=== PATIENT | male | born 1980 | race Hispanic/Latino ===

== ENCOUNTER 2018-03-04 19:52 | Emergency (ER) | payer SELFPAY ==
[~2018-03-04] VITALS: Ht 177.8 cm; Wt 145.1 kg
[2018-03-04] MEDS ORDERED: KEFLEX500 MG PO (21:59)
[2018-03-04 22:15] VITALS: BP 120/82
== END 2018-03-04 22:19 | disposition home or self-care (01) ==
LOC: ER 19:52
DX: L03.221 Cellulitis of neck (principal); I10 Essential (primary) hypertension; E11.9 Type 2 diabetes mellitus without complications; E66.9 Obesity, unspecified
CPT/HCPCS: 99282

== ENCOUNTER 2018-06-10 11:41 | Emergency (ER) | payer SELFPAY ==
[~2018-06-10] VITALS: Ht 177.8 cm; Wt 136.1 kg
[~2018-06-10 11:41] MED LIST: KEFLEX500 MG PO
--- OUTSIDE RECORDS SUMMARY | 2018-06-10 11:44 | XMS REPORT | Continuity of Care Document ---
Author Author [facility] Interface Address Unknown Phone Unavailable Problems Problem Status Onset Date Classification Date Reported Comments Source ABSCESS, NECK, DIABETES Active 01/26/2018 [facility] ABSCESS Active 01/26/2018 [facility] Abdominal pain 10/22/2017 10/25/2017 [facility] Hyperglycemia due to type 2 diabetes mellitus 10/22/2017 10/25/2017 [facility] ABD PAIN Active 10/22/2017 [facility] Hypercholesteremia Resolved Problem 10/25/2017 [facility] Medications Medication Details Route Status Patient Instructions Ordering Provider Order Date Source Ranitidine 150 MG Oral Tablet [Zantac] 150 mg=1 tab, PO, BID, # 60 tab, 0 Refill(s) Active 10/23/2017 [facility] Ondansetron 4 MG Disintegrating Tablet [Zofran] 4 mg=1 tab, PO, Q8H, PRN as needed for nausea/vomiting, # 12 tab, 0 Refill(s) Active 10/23/2017 [facility] Dicyclomine Hydrochloride 20 MG Oral Tablet [Bentyl] 20 mg=1 tab, PO, QID-Before Meals, # 20 tab, 0 Refill(s) Active 10/23/2017 [facility] Insulin regular 10 unit, 0.1 mL, Route: IVP, Drug form: INJ, ONCE, Dosing Weight 136.364, kg, Priority: STAT, Start date: 10/22/17 19:29:00 CDT, Stop date: 10/22/17 19:29:00 CDTNotes: (Same as: Humulin R and NovoLIN R) WASTE: F/P - Black; E - [employer] Trash Bin (Do not shake) Inactive 10/23/2017 [facility] GI cocktail 30 mL, Route: PO, Drug Form: SUSP, Dosing Weight 136.364, kg, ONCE, STAT, Start date: 10/22/17 19:26:00 CDT, Stop date: 10/22/17 19:26:00 CDTNotes: G.I. Cocktail=antacid with simethicone 22.5 mL - lidocaine viscous 7.5 mL Inactive 10/23/2017 [facility] Famotidine 20 mg, 1 tab, Route: PO, Drug form: TAB, ONCE, Dosing Weight 136.364, kg, Priority: STAT, Start date: 10/22/17 19:26:00 CDT, Stop date: 10/22/17 19:26:00 CDTNotes: (Same as: Pepcid) Inactive 10/23/2017 [facility] Bentyl 20 mg, 2 mL, Route: IM, Drug form: INJ, ONCE, Dosing Weight 136.364, kg, Priority: STAT, Start date: 10/22/17 19:26:00 CDT, Stop date: 10/22/17 19:26:00 CDTNotes: (Same as: Bentyl) Inactive 10/23/2017 [facility] Saline Flush 0.9% 10 mL, Route: IVP, Drug Form: INJ, Dosing Weight 136.364, kg, PRN, PRN Line Flush, Start date: 10/22/17 15:43:00 CDT, Duration: 30 day, Stop date: 11/21/17 15:42:00 CDTNotes: (Same as: BD Posiflush) No Longer Active 10/22/2017 [facility] Sodium Chloride 0.9% (Bolus) IV 1,000 mL, 1000 ml/hr, Infuse Over: 1 hr, Route: IV, 1,000, Drug form: INJ, ONCE, Priority: STAT, Dosing Weight 136.364 kg, Start date: 10/22/17 15:43:00 CDT, Stop date: 10/22/17 15:43:00 CDT Inactive 10/22/2017 [facility] Allergies, Adverse Reactions, Alerts Substance Category Reaction Severity Reaction type Status Date Reported Comments Source Immunizations Immunization Date Given Site Status Last Updated Comments Source diphtheria/pertussis, acel/tetanus adult 10/28/2016 Right deltoid completed [facility] Results Order Name Results Value Reference Range Date Interpretation Comments Source URINE AND STOOL UA Urobilinogen <=1.0 mg/dL 0.1 - 1.0 10/22/2017 [facility] URINE AND STOOL UA Color Ltyellow 10/22/2017 [facility] URINE AND STOOL UA Sq Epi None Seen 10/22/2017 [facility] URINE AND STOOL UA Nitrite Negative (10/22/17 5:16 PM) Negative 10/22/2017 [facility] URINE AND STOOL UA Leuk Est Negative (10/22/17 5:16 PM) Negative 10/22/2017 [facility] URINE AND STOOL UA Bili Negative *NA* (10/22/17 5:16 PM) Negative 10/22/2017 [facility] URINE AND STOOL UA Blood Negative (10/22/17 5:16 PM) Negative 10/22/2017 [facility] URINE AND STOOL UA Turbidity Clear (10/22/17 5:16 PM) Clear 10/22/2017 [facility] URINE AND STOOL UA Spec Grav 1.033 <=1.030 10/22/2017 [facility] URINE AND STOOL UA pH 6.0 5.0 - 8.0 10/22/2017 [facility] URINE AND STOOL UA Protein Negative mg/dL Negative mg/dL 10/22/2017 [facility] URINE AND STOOL UA Glucose 500 mg/dL Negative mg/dL 10/22/2017 [facility] URINE AND STOOL UA Ketones Negative mg/dL Negative mg/dL 10/22/2017 [facility] CHEM PANEL Globulin 3.8 g/dL 2.7 - 4.2 10/22/2017 [facility] CHEM PANEL A/G Ratio 1.0 0.7 - 1.6 10/22/2017 [facility] CHEM PANEL Bili Indirect null 0.0 - 1.0 10/22/2017 [facility] CHEM PANEL Bili Direct null 0.0 - 0.3 10/22/2017 [facility] CHEM PANEL Alk Phos 243 unit/L 39 - 136 10/22/2017 [facility] CHEM PANEL ALT 60 unit/L 0 - 65 10/22/2017 [facility] CHEM PANEL Bili Total 0.6 mg/dL 0.2 - 1.3 10/22/2017 [facility] CHEM PANEL Total Protein 7.6 g/dL 6.4 - 8.4 10/22/2017 [facility] CHEM PANEL AST 23 unit/L 0 - 37 10/22/2017 [facility] CHEM PANEL Albumin Lvl 3.8 g/dL 3.5 - 5.0 10/22/2017 [facility] CHEM PANEL Lipase Lvl 209 unit/L 73 - 393 10/22/2017 [facility] CHEM PANEL Ketone Quantitative 0.10 mmol/L <=0.27 mmol/L 10/22/2017 [facility] ELECTROLYTES AGAP 8.7 meq/L 10.0 - 20.0 10/22/2017 [facility] eGFR 93 mL/min/1.73m2 10/22/2017 Result Comment: The eGFR is calculated using the CKD-EPI formula. In most young, healthy individuals the eGFR will be >90 mL/min/1.73m2. The eGFR declines with age. An eGFR of 60-89 may be normal in some populations, particularly the elderly, for whom the CKD-EPI formula has not been extensively validated. Use of the eGFR is not recommended in the following populations: Individuals with unstable creatinine concentrations, including patients and those with serious co-morbid conditions. Patients with extremes in muscle mass or diet. The data above are obtained from the National Kid[employer] Disease Education Program (NKDEP) which additionally recommends that when the eGFR is used in patients with extremes of body mass index for purposes of drug dosing, the eGFR should be multiplied by the estimated BMI. [facility] ELECTROLYTES Calcium Lvl 9.3 mg/dL 8.5 - 10.5 10/22/2017 [facility] ELECTROLYTES CO2 33 meq/L 24 - 32 10/22/2017 [facility] ELECTROLYTES Chloride Lvl 99 meq/L 95 - 109 10/22/2017 [facility] ELECTROLYTES Sodium Lvl 136 meq/L 135 - 145 10/22/2017 [facility] ELECTROLYTES Potassium Lvl 4.7 meq/L 3.5 - 5.1 10/22/2017 [facility] ELECTROLYTES Creatinine Lvl 1.03 mg/dL 0.50 - 1.40 10/22/2017 [facility] Glucose Lvl 388 mg/dL 70 - 99 10/22/2017 [facility] BUN 17 mg/dL 7 - 22 10/22/2017 [facility] MCHC 33.7 g/dL 32.0 - 36.0 10/22/2017 [facility] Hct 48.5 % 42.0 - 54.0 10/22/2017 [facility] Hgb 16.4 g/dL 14.0 - 18.0 10/22/2017 [facility] MPV 8.8 fL 7.4 - 10.4 10/22/2017 [facility] MCH 30.3 pg 27.0 - 31.0 10/22/2017 [facility] MCV 90.0 fL 80.0 - 94.0 10/22/2017 [facility] RBC 5.40 M/CMM 4.70 - 6.10 10/22/2017 [facility] WBC 7.1 K/CMM 3.7 - 10.4 10/22/2017 [facility] Platelet 206 K/CMM 133 - 450 10/22/2017 [facility] RDW 13.7 % 11.5 - 14.5 10/22/2017 [facility] Basophils # 0.1 K/CMM 0.0 - 0.2 10/22/2017 [facility] Eosinophils # 0.2 K/CMM 0.0 - 0.5 10/22/2017 [facility] Monocytes # 0.5 K/CMM 0.0 - 0.8 10/22/2017 [facility] Lymphocytes # 1.2 K/CMM 1.0 - 5.5 10/22/2017 [facility] Lymphocytes 17.6 % 20.0 - 40.0 10/22/2017 [facility] Monocytes 7.2 % 2.0 - 12.0 10/22/2017 [facility] Segs 71.5 % 45.0 - 75.0 10/22/2017 [facility] Segs-Bands # 5.1 K/CMM 1.5 - 8.1 10/22/2017 [facility] Basophils 0.9 % 0.0 - 1.0 10/22/2017 [facility] Eosinophils 2.8 % 0.0 - 4.0 10/22/2017 [facility] ED Abdomen/Pelvis IV contrast only CT ED Abdomen/Pelvis IV contrast only CT Patient Name: STUART LEBRON : 1980; Age: 37 years y/o Male MR: [id number] Study: ED Abdomen/Pelvis IV contrast only CT 10/22/2017 3:43 PM CDT Ordering Physician: Clinical Indication: - Acute pain left lower abdomen. Pain with palpation. Concerning for colitis versus diverticulitis.; Comparison: None TECHNIQUE: Helical imaging was performed diaphragm through the symphysis with multiplanar reformations obtained. IV CONTRAST: 100cc Omnipaque 300 GI CONTRAST: None CT Radiation Dose: TYB=[id number] mGy-cm FINDINGS: LOWER CHEST: The lung bases are clear. SOLID ORGANS: The liver, gallbladder, spleen, pancreas, adrenal glands and kidneys are normal. BOWEL: The bowel is within normal limits. Right lower quadrant appendix shows normal size. Sigmoid colon follows a tortuous redundant course but does not show appreciable wall thickening or diverticular disease. PERITONEUM: No free intraperitoneal fluid or air. RETROPERITONEUM: No adenopathy. The aorta is normal. PELVIS: No pelvic mass. The urinary bladder is normal. MUSCULOSKELETAL: The skeleton is intact. IMPRESSION: Right lower quadrant appendix shows normal size. Sigmoid colon follows a tortuous redundant course but does not show appreciable wall thickening or diverticular disease. If pain persists or worsens, repeat imaging is recommended with intravenous and rectal contrast to better assess the colon wall. SL: WHJOSEPH 10/22/2017 - - Read by: Ilya Rousseau MD Dictated Date/time: 10/22/17 17:33 Electronically Signed by: Ilya Rousseau MD 10/22/17 17:55 FINAL REPORT [facility] Vital Signs Vital Sign Value Date Comments Source Temperature Oral (F) 98.7 F 10/23/2017 [facility] Systolic (mm Hg) 134 10/23/2017 [facility] Diastolic (mm Hg) 84 10/23/2017 [facility] Respitory Rate 16 10/23/2017 [facility] Heart Rate 89 10/23/2017 [facility] Heart Rate 88 10/23/2017 [facility] Respitory Rate 18 10/23/2017 [facility] Systolic (mm Hg) 138 10/23/2017 [facility] Diastolic (mm Hg) 81 10/23/2017 [facility] Temperature Oral (F) 98.6 F 10/23/2017 [facility] Systolic (mm Hg) 146 10/22/2017 [facility] Diastolic (mm Hg) 100 10/22/2017 [facility] Heart Rate 81 10/22/2017 [facility] Respitory Rate 18 10/22/2017 [facility] Temperature Oral (F) 98.1 F 10/22/2017 [facility] Weight 136.364 10/22/2017 [facility] BMI Calculated 44.4 10/22/2017 [facility] Height 175.26 cm 10/22/2017 [facility] Encounters Location Location Details Encounter Type Encounter Number Reason For Visit Attending Provider ADM Date DC Date Status Source [facility] Emergency [id number] Cat Crews 10/22/2017 10/23/2017 [facility] Procedures Procedure Code Date Perfomer Comments Source
[2018-06-10 12:29] LABS: CLARITY,URINE CLEAR (CLEAR); COLOR,URINE YELLOW (YELLOW)
[2018-06-10 12:30] LABS: BILIRUBIN,URINE NEGATIVE (NEGATIVE); KETONES,URINE NEGATIVE (NEGATIVE); LEUKOCYTE ESTERASE ,URINE NEGATIVE (NEGATIVE); NITRITE,URINE NEGATIVE (NEGATIVE); PROTEIN,URINE DIPSTICK NEGATIVE (NEGATIVE); URINE UROBILINOGEN 0.2 mg/dL (0.2 - 1)
[2018-06-10 12:43] LABS: BASOPHILS % 0.2 % (0.0-1.0); EOSINOPHILS # (AUTO) 0.2 (0.0-0.4); EOSINOPHILS % 3.8 % (0.0-6.0); HEMATOCRIT 49.4 % (38.2-49.6); LYMPHOCYTES # (AUTO) 1.6 (1.0-3.2); LYMPHOCYTES % 29.2 % (18.0-39.1); MEAN CORPUSCULAR HEMOGLOBIN 30.2 pg (28-32); MEAN CORPUSCULAR HGB CONC 34.4 g/dL (31-35); MEAN CORPUSCULAR VOLUME 87.7 fL (81-99); MONOCYTES # (AUTO) 0.5 (0.2-0.8); NEUTROPHILS # (AUTO) 3.2 (2.1-6.9); NEUTROPHILS % 57.3 % (38.7-80.0); PLATELET COUNT 227 x10e3/uL (140-360); RED BLOOD COUNT 5.63 x10e6/uL (4.3-5.7); RED CELL DISTRIBUTION WIDTH 12.9 % (11.7-14.4)
[2018-06-10 12:44] LABS: BACTERIA,URINE FEW /HPF; EPITHELIAL CELLS,URINE FEW /LPF; RBC,URINE 0-5 /HPF (0-5); WBC,URINE (MAN) 0-5 /HPF (0-5)
--- NOTE | 2018-06-10 12:51 | NUR ---
pt states he gets thristy frequently and urinates a lot at night for unknown length of time
--- NOTE | 2018-06-10 12:57 | NUR ---
pt states he is diabetic and has high cholesterol. pt blood sugar 283 denies n/v, feeling hot/flushed
--- NOTE | 2018-06-10 12:58 | NUR ---
pt states he does not take any medications due to inability to afford them states he is supposed to be on insulin and does not check his blood glucose regularly
--- NOTE | 2018-06-10 13:05 | NUR ---
WINIFRED NOTIFIED OF ALL PREVIOUS NOTES
[2018-06-10 14:20] LABS: AMYLASE 54 U/L (25-125); ANION GAP 16.9 mmol/L (8-16); BLOOD UREA NITROGEN 13 mg/dL (7-26); BUN/CREATININE RATIO 15 (6-25); CALCIUM 9.9 mg/dL (8.4-10.2); CARBON DIOXIDE 22 mmol/L (22-29); CHLORIDE 98 mmol/L (98-107); CREATININE, SERUM 0.85 mg/dL (0.72-1.25); EST GLOMERULAR FILTRATION RATE > 60 ML/MIN (60-); GLUCOSE 304 mg/dL (74-118); LIPASE 23 U/L (8-78); POTASSIUM 3.9 mmol/L (3.5-5.1); SODIUM 133 mmol/L (136-145)
[2018-06-10] MEDS ORDERED: SODIUM CHLORIDE 0.9% 500ML 500 ML IV ONE (14:30)
[2018-06-10] MEDS ORDERED: INSULIN LISPRO 100 UNIT/1 ML 3ML VIAL SQ NR (14:30)
[2018-06-10] MEDS ORDERED: HYDROCODONE/APAP 5MG-325MG TAB PO ONE ×2 (14:45→15:00)
--- NOTE | 2018-06-10 16:28 | Diagnostic Imaging Report ---
EXAMINATION: CT of the abdomen and pelvis with contrast. TECHNIQUE: Spiral CT images of the abdomen and pelvis were performed from the lung bases to the lesser trochanters after the intravenous administration of 100 cc of Isovue 370 and the oral administration of water. Coronal and sagittal reformatted images were obtained. COMPARISON: None. CLINICAL HISTORY:Mid and lower right abdominal pain DISCUSSION: ABDOMEN/PELVIS: LOWER THORAX:Mild pleural thickening in the posterior left lower lobe. HEPATOBILIARY: Normal hepatic size and contour. Diffusely decreased attenuation of the hepatic parenchyma consistent with steatosis. No focal lesions. No intra or extrahepatic biliary ductal dilation. GALLBLADDER: No radio-opaque stones or sludge. No wall thickening. SPLEEN: No splenomegaly. PANCREAS: No focal masses or ductal dilatation. ADRENALS: No adrenal nodules. KIDNEYS/URETERS: No hydronephrosis, stones, or solid mass lesions. PELVIC ORGANS/BLADDER: Bladder and prostate are unremarkable. PERITONEUM/RETROPERITONEUM: No free air or fluid. LYMPH NODES: No intra-abdominal, retroperitoneal, pelvic or inguinal lymphadenopathy. VESSELS: The celiac trunk,superior and inferior mesenteric and bilateral renal arteries are patent The portal, superior mesenteric and splenic veins are patent. GI TRACT: No bowel dilation or evidence of obstruction. Appendix is well identified and normal in caliber. No pericolonic inflammatory changes. Mild circumferential wall thickening in the distal sigmoid/proximal rectum likely reflects underdistention (for example series 2, image 68), as no surrounding inflammatory changes are noted. BONES AND SOFT TISSUE: No aggressive lytic lesions. 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 Small fat-containing umbilical hernia. Small fat-containing right inguinal hernia. IMPRESSION: 1. No acute abdominopelvic abnormalities. No CT evidence of appendicitis. Bowel has an essentially unremarkable appearance. 2. Diffuse hepatic steatosis. Signed by: Dr. David Silva M.D. on 06/10/2018 4:25 PM
[2018-06-10 17:19] VITALS: BP 124/89
[2018-06-10] MEDS ORDERED: SODIUM CHLORIDE 0.9% 50ML 50 ML ONE (19:54)
[2018-06-10] MEDS ORDERED: IOPAMIDOL 370 MG/ML 200 ML INFUS..BTL INJ ONE (19:54)
== END 2018-06-10 17:29 | disposition home or self-care (01) ==
LOC: ER 11:41
DX: R10.84 Generalized abdominal pain (principal); E11.65 Type 2 diabetes mellitus with hyperglycemia
CPT/HCPCS: 36415; 74177; 80048; 81001; 82150; 82948; 83690; 85025; 99284; J7040; Q9967

== ENCOUNTER 2018-08-28 01:31 | Emergency (ER) | payer SELFPAY ==
[~2018-08-28] VITALS: Ht 177.8 cm; Wt 136.1 kg
--- OUTSIDE RECORDS SUMMARY | 2018-08-28 01:35 | XMS REPORT | Summary of Care ---
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) - Hypo-osmolality and hyponatremia (Final) - Discharge Disposition: Home or Self Care Attending Physician: En Brown MD Admitting Physician: En Brown MD Vital Signs 1 2 3 Most recent to oldest [Reference Range]: 172.72 cm (01/26/18 8:33 PM) Height 98.4 DegF (01/27/18 3:58 PM) 98.3 DegF (01/27/18 11:27 AM) 97.6 DegF (01/27/18 7:31 AM) Temperature Oral [96.4-99.1 DegF] 111/71 mmHg (01/27/18 3:58 PM) 115/76 mmHg (01/27/18 11:27 AM) 106/64 mmHg (01/27/18 7:31 AM) Blood Pressure [90-140/60-90 mmHg] 19 BRMIN (01/27/18 3:58 PM) 17 BRMIN (01/27/18 11:27 AM) 18 BRMIN (01/27/18 7:31 AM) Respiratory Rate [14-20 BRMIN] 55 bpm *LOW* (01/27/18 3:58 PM) 57 bpm *LOW* (01/27/18 11:27 AM) 49 bpm *LOW* (01/27/18 7:31 AM) Peripheral Pulse Rate [60-100 bpm] 143.182 kg (01/26/18 8:33 PM) Weight 48 m2 (01/26/18 8:33 PM) Body Mass Index Problem List Condition Effective Dates Status Health Status Informant Hypercholesteremia(C Resolved onfirmed) Type II diabetes Active mellitus poorly controlled(Confirmed ) Allergies, Adverse Reactions, Alerts Substance Reaction Severity Status NKDA Active Medications acetaminophen 650 mg, 2 tab, Route: PO, Drug form: TAB, Q4H, Dosing Weight 143.182, kg, PRN Pa in 1-3/Temp > 100.4 F, Start date: 01/26/18 22:14:00 CDT, Duration: 30 day, Stop date: 02/25/18 22:13:00 CDT Notes: Do not exceed 4 gm/day. (Same as: Tylenol) Start Date: 01/26/18 Stop Date: 01/27/18 Status: Discontinued clindamycin 600 mg, 4 mL, Route: IM, Drug form: INJ, ONCE, Dosing Weight 136.364, kg, Priori ty: STAT, Start date: 01/26/18 15:28:00 CDT, Stop date: 01/26/18 15:28:00 CDT, A BX Indication: Skin/Soft Tissue Infection Notes: (clindamycin 150 mg/1 ml (600 mg/4 ml VL) INJ) (Same As: Cleocin) Start Date: 01/26/18 Stop Date: 01/26/18 Status: Completed clindamycin 900 mg, 50 mL, Route: IVPB, Drug form: INJ, ABXQ8H, Dosing Weight 143.182, kg, S tart date: 01/26/18 22:00:00 CDT, Duration: 1 day, Stop date: 01/27/18 14:00:00 CDT, ABX Indication: Skin/Soft Tissue Infection Start Date: 01/26/18 Stop Date: 01/27/18 Status: Completed clindamycin 900 mg, 6 mL, Route: IM, Drug form: INJ, ONCE, Dosing Weight 136.364, kg, Priori ty: STAT, Start date: 01/26/18 15:19:00 CDT, Stop date: 01/26/18 15:19:00 CDT, A BX Indication: Skin/Soft Tissue Infection Notes: (Same As: Cleocin) Start Date: 01/26/18 Stop Date: 01/26/18 Status: Discontinued clindamycin 300 mg oral capsule 300 mg=1 cap, PO, Q6H, X 10 day, # 40 cap, 0 Refill(s), Pharmacy: [facility] [id number] Start Date: 01/27/18 Stop Date: 02/06/18 Status: Completed Dextrose 50% Syringe 25 gm, 50 mL, Route: IVP, Drug Form: INJ, Dosing Weight 136.364, kg, PRN, PRN Bl ood Glucose Results, Start date: 01/26/18 16:25:00 CDT, Duration: 30 day, Stop d ate: 02/25/18 16:24:00 CDT Start Date: 01/26/18 Stop Date: 01/26/18 Status: Discontinued Dextrose 50% Syringe 12.5 gm, 25 mL, Route: IVP, Drug Form: INJ, Dosing Weight 136.364, kg, PRN, PRN Blood Glucose Results, Start date: 01/26/18 16:25:00 CDT, Duration: 30 day, Stop date: 02/25/18 16:24:00 CDT Start Date: 01/26/18 Stop Date: 01/26/18 Status: Discontinued Dextrose 50% Syringe 25 gm, 50 mL, Route: IVP, Drug Form: INJ, Dosing Weight 143.182, kg, PRN, PRN Bl ood Glucose Results, Start date: 01/26/18 21:48:00 CDT, Duration: 30 day, Stop d ate: 02/25/18 21:47:00 CDT Start Date: 01/26/18 Stop Date: 01/27/18 Status: Discontinued Dextrose 50% Syringe 12.5 gm, 25 mL, Route: IVP, Drug Form: INJ, Dosing Weight 143.182, kg, PRN, PRN Blood Glucose Results, Start date: 01/26/18 21:48:00 CDT, Duration: 30 day, Stop date: 02/25/18 21:47:00 CDT Start Date: 01/26/18 Stop Date: 01/27/18 Status: Discontinued Dextrose 50% Syringe 25 gm, 50 mL, Route: IVP, Drug Form: INJ, Dosing Weight 143.182, kg, PRN, PRN Bl ood Glucose Results, Start date: 01/27/18 9:13:00 CDT, Duration: 30 day, Stop da te: 02/26/18 9:12:00 CDT Start Date: 01/27/18 Stop Date: 01/27/18 Status: Discontinued Dextrose 50% Syringe 12.5 gm, 25 mL, Route: IVP, Drug Form: INJ, Dosing Weight 143.182, kg, PRN, PRN Blood Glucose Results, Start date: 01/27/18 9:13:00 CDT, Duration: 30 day, Stop date: 02/26/18 9:12:00 CDT Start Date: 01/27/18 Stop Date: 01/27/18 Status: Discontinued glucagon 1 mg, Route: IM, Drug form: PDR/INJ, PRN, Dosing Weight 136.364, kg, PRN Blood G lucose Results, Start date: 01/26/18 16:25:00 CDT, Duration: 30 day, Stop date: 02/25/18 16:24:00 CDT Start Date: 01/26/18 Stop Date: 01/26/18 Status: Discontinued glucagon 1 mg, Route: IM, Drug form: PDR/INJ, PRN, Dosing Weight 143.182, kg, PRN Blood G lucose Results, Start date: 01/26/18 21:48:00 CDT, Duration: 30 day, Stop date: 02/25/18 21:47:00 CDT Start Date: 01/26/18 Stop Date: 01/27/18 Status: Discontinued glucagon 1 mg, Route: IM, Drug form: PDR/INJ, PRN, Dosing Weight 143.182, kg, PRN Blood G lucose Results, Start date: 01/27/18 9:13:00 CDT, Duration: 30 day, Stop date: 0 02/26/18 9:12:00 CDT Start Date: 01/27/18 Stop Date: 01/27/18 Status: Discontinued insulin isophane-insulin regular human recombinant 70 units-30 units/mL subcutan eous injection 40 unit, SUB-Q, BID, # 10 mL, 3 Refill(s), Pharmacy: [facility] [id number] Start Date: 01/27/18 Stop Date: 05/27/18 Status: Ordered insulin isophane-NPH 15 unit, 0.15 mL, Route: SUB-Q, Drug form: INJ, BID, Dosing Weight 143.182, kg, Priority: NOW, Start date: 01/27/18 9:18:00 CDT, Duration: 30 day, Stop date: 9:00:00 CDT Notes: Roll in palms of hands gently; Do not shake vigorously. (Same as: Humuli n N)Do not hold insulin without contacting prescriberWASTE: F/P - Black; E - Mu icipal Trash Bin Stable for 28 days at room temperatureExpires in days f rom Date Start Date: 01/27/18 Stop Date: 01/27/18 Status: Discontinued insulin lispro 2 unit, 0.02 mL, Route: SUB-Q, Drug form: SOLN, TID-Before Meals, Dosing Weight 143.182, kg, PRN Blood Glucose Results, Start date: 01/27/18 9:13:00 CDT, Durati on: 30 day, Stop date: 02/26/18 9:12:00 CDT Notes: (Same as: Humalog ) Roll in palms of hands gently; Do not shake `vigorou sly. "Single Patient Use Only " WASTE: F/P - Black; E - Municipal Trash Bin St able for 28 days at room temperature.Expires in days from Da te Start Date: 01/27/18 Stop Date: 01/27/18 Status: Discontinued insulin lispro 3 unit, 0.03 mL, Route: SUB-Q, Drug form: SOLN, TID-Before Meals, Dosing Weight 143.182, kg, PRN Blood Glucose Results, Start date: 01/27/18 9:13:00 CDT, Durati on: 30 day, Stop date: 02/26/18 9:12:00 CDT Notes: (Same as: Humalog ) Roll in palms of hands gently; Do not shake `vigorou sly. "Single Patient Use Only " WASTE: F/P - Black; E - Municipal Trash [address] St able for 28 days at room temperature.Expires in days from Da te Start Date: 01/27/18 Stop Date: 01/27/18 Status: Discontinued insulin lispro 1 unit, 0.01 mL, Route: SUB-Q, Drug form: SOLN, TID-Before Meals, Dosing Weight 143.182, kg, PRN Blood Glucose Results, Start date: 01/27/18 9:13:00 CDT, Durati on: 30 day, Stop date: 02/26/18 9:12:00 CDT Notes: (Same as: Humalog ) Roll in palms of hands gently; Do not shake `vigorou sly. "Single Patient Use Only " WASTE: F/P - Black; E - Municipal Trash [address] St able for 28 days at room temperature.Expires in days from Da te Start Date: 01/27/18 Stop Date: 01/27/18 Status: Discontinued insulin lispro 4 unit, 0.04 mL, Route: SUB-Q, Drug form: SOLN, TID-Before Meals, Dosing Weight 143.182, kg, PRN Blood Glucose Results, Start date: 01/27/18 9:13:00 CDT, Durati on: 30 day, Stop date: 02/26/18 9:12:00 CDT Notes: (Same as: Humalog ) Roll in palms of hands gently; Do not shake `vigorou sly. "Single Patient Use Only " WASTE: F/P - Black; E - Municipal Trash [address] St able for 28 days at room temperature.Expires in days from Da te Start Date: 01/27/18 Stop Date: 01/27/18 Status: Discontinued insulin lispro 5 unit, 0.05 mL, Route: SUB-Q, Drug form: SOLN, TID-Before Meals, Dosing Weight 143.182, kg, PRN Blood Glucose Results, Start date: 01/27/18 9:13:00 CDT, Durati on: 30 day, Stop date: 02/26/18 9:12:00 CDT Notes: (Same as: Humalog ) Roll in palms of hands gently; Do not shake `vigorou sly. "Single Patient Use Only " WASTE: F/P - Black; E - Municipal Trash Bin St able for 28 days at room temperature.Expires in days from Da te Start Date: 01/27/18 Stop Date: 01/27/18 Status: Discontinued Insulin regular 10 unit, 0.1 mL, Route: IV, Drug form: INJ, ONCE, Dosing Weight 136.364, kg, Jazzy ority: STAT, Start date: 01/26/18 18:00:00 CDT, Stop date: 01/26/18 18:00:00 CDT Notes: (Same as: Humulin R and NovoLIN R)WASTE: F/P - Black; E - Municipal Trash Bin (Do not shake) Start Date: 01/26/18 Stop Date: 01/26/18 Status: Completed [place] 10/325 oral tablet 1 tab, Route: PO, Drug Form: TAB, Dosing Weight 136.364, kg, ONCE, STAT, Start d ate: 01/26/18 14:25:00 CDT, Stop date: 01/26/18 14:25:00 CDT Start Date: 01/26/18 Stop Date: 01/26/18 Status: Completed [place] 5/325 oral tablet 1 tab, Route: PO, Drug Form: TAB, Dosing Weight 143.182, kg, Q4H, PRN Pain Score 6-10, NOW, Start date: 01/27/18 4:02:00 CDT, Duration: 30 day, Stop date: 02/26 4:01:00 CDT Notes: (Same as: [place] 325/5) Do not exceed 4gm/day of acetaminophen. Start Date: 01/27/18 Stop Date: 01/27/18 Status: Discontinued [place] 5/325 oral tablet 1 tab, Route: PO, Drug Form: TAB, Dosing Weight 136.364, kg, ONCE, STAT, Start d ate: 01/26/18 15:19:00 CDT, Stop date: 01/26/18 15:19:00 CDT Notes: (Same as: [place] 325/5) Do not exceed 4gm/day of acetaminophen. Start Date: 01/26/18 Stop Date: 01/26/18 Status: Completed NS (Bolus) IV 1,000 mL, 1,000 ml/hr, Infuse Over: 1 hr, Route: IV, 1,000, Drug form: INJ, ONCE , Priority: STAT, Dosing Weight 136.364 kg, Start date: 01/26/18 18:00:00 CDT, S top date: 01/26/18 18:00:00 CDT Start Date: 01/26/18 Stop Date: 01/26/18 Status: Completed Saline Flush 0.9% 10 mL, Route: IVP, Drug Form: INJ, Dosing Weight 136.364, kg, PRN, PRN Line Flus h, Start date: 01/26/18 16:25:00 CDT, Duration: 30 day, Stop date: 02/25/18 16:2 4:00 CDT Notes: (Same as: BD Posiflush) Start Date: 01/26/18 Stop Date: 01/26/18 Status: Discontinued Saline Flush 0.9% 10 ml, Route: IVP, Drug Form: INJ, Dosing Weight 143.182, kg, PRN, PRN Line Flus h, Start date: 01/26/18 22:14:00 CDT, Duration: 30 day, Stop date: 02/25/18 22:1 3:00 CDT Notes: (Same as: BD Posiflush) Start Date: 01/26/18 Stop Date: 01/27/18 Status: Discontinued Sodium Chloride 0.9% (Bolus) IV 1,000 mL, 1000 ml/hr, Infuse Over: 1 hr, Route: IV, 1,000, Drug form: INJ, ONCE, Priority: STAT, Dosing Weight 136.364 kg, Start date: 01/26/18 16:25:00 CDT, St op date: 01/26/18 16:25:00 CDT Start Date: 01/26/18 Stop Date: 01/26/18 Status: Completed Sodium Chloride 0.9% IV 1,000 mL 1,000 mL, Rate: 75 ml/hr, Infuse over: 13.3 hr, Route: IV, Dosing Weight 143.182 kg, Total Volume: 1,000, Start date: 01/26/18 22:14:00 CDT, Duration: 30 day, S top date: 02/25/18 22:13:00 CDT, 2.66, m2 Start Date: 01/26/18 Stop Date: 01/27/18 Status: Discontinued Results ELECTROLYTES Most recent to 1 2 oldest [Reference Range]: Sodium Lvl [135-145 136 mEq/L 132 mEq/L mEq/L] (01/27/18 4:02 AM) *LOW* (01/26/18 4:45 PM) Potassium Lvl 4.0 mEq/L 4.4 mEq/L [3.5-5.1 mEq/L] (01/27/18 4:02 AM) (01/26/18 4:45 PM) Chloride Lvl [95-109 101 mEq/L 97 mEq/L mEq/L] (01/27/18 4:02 AM) (01/26/18 4:45 PM) CO2 [24-32 mEq/L] 28 mEq/L 26 mEq/L (01/27/18 4:02 AM) (01/26/18 4:45 PM) AGAP [10.0-20.0 11.0 mEq/L 13.4 mEq/L mEq/L] (01/27/18 4:02 AM) (01/26/18 4:45 PM) CHEM PANEL Most recent to 1 2 oldest [Reference Range]: Creatinine Lvl 0.82 mg/dL 0.96 mg/dL [0.50-1.40 mg/dL] (01/27/18 4:02 AM) (01/26/18 4:45 PM) eGFR 114 mL/min/1.73m2 1 102 mL/min/1.73m2 2 *NA* *NA* (01/27/18 4:02 AM) (01/26/18 4:45 PM) BUN [7-22 mg/dL] 15 mg/dL 17 mg/dL (01/27/18 4:02 AM) (01/26/18 4:45 PM) B/C Ratio [6-25] 18 (01/27/18 4:02 AM) Glucose Lvl [70-99 307 mg/dL 496 mg/dL 3 mg/dL] *HI* *CRIT* (01/27/18 4:02 AM) (01/26/18 4:45 PM) Total Protein 6.6 g/dL [6.4-8.4 g/dL] (01/27/18 4:02 AM) Albumin Lvl [3.5-5.0 3.1 g/dL g/dL] *LOW* (01/27/18 4:02 AM) Globulin [2.7-4.2 3.5 g/dL g/dL] (01/27/18 4:02 AM) A/G Ratio [0.7-1.6] 0.9 (01/27/18 4:02 AM) Calcium Lvl 8.2 mg/dL 9.2 mg/dL [8.5-10.5 mg/dL] *LOW* (01/26/18 4:45 PM) (01/27/18 4:02 AM) ALT [0-65 unit/L] 26 unit/L (01/27/18 4:02 AM) AST [0-37 unit/L] 23 unit/L (01/27/18 4:02 AM) Alk Phos [39-136 107 unit/L unit/L] (01/27/18 4:02 AM) Bili Total [0.2-1.3 0.4 mg/dL mg/dL] (01/27/18 4:02 AM) Ketone Quantitative 0.26 mmol/L [<=0.27 mmol/L] (01/26/18 4:45 PM) Lactic Acid Lvl 1.0 mMol/L 1.2 mMol/L [0.5-2.2 mMol/L] (01/26/18 10:51 PM) (01/26/18 4:45 PM) 1Result Comment: The eGFR is calculated using the [...] from the National Kidney Disease Education Program ( NKDEP) which additionally recommends that when the eGFR is used in patients with extremes of body mass index for purposes of drug dosing, the eGFR should be mul tiplied by the estimated BMI. 2Result Comment: The eGFR is calculated using the [...] from the National Kidney Disease Education Program ( NKDEP) which additionally recommends that when the eGFR is used in patients with extremes of body mass index for purposes of drug dosing, the eGFR should be mul tiplied by the estimated BMI. 3Result Comment: Critical Result(s) called to eamon at 01/26/2018 17:57by gonzalez Read back OK. SPECIAL CHEMISTRY Most recent to 1 2 oldest [Reference Range]: Hgb A1C [<=5.6 %] 13.1 % *HI* (01/27/18 4:02 AM) IMMUNOLOGY Most recent to 1 2 oldest [Reference Range]: CRP [<=2.9 mg/L] 26.1 mg/L *HI* (01/27/18 4:02 AM) HEMATOLOGY Most recent to 1 2 oldest [Reference Range]: WBC [3.7-10.4 K/CMM] 7.2 K/CMM 11.1 K/CMM (01/27/18 4:02 AM) *HI* (01/26/18 4:45 PM) RBC [4.70-6.10 4.68 M/CMM 5.35 M/CMM M/CMM] *LOW* (01/26/18 4:45 PM) (01/27/18 4:02 AM) Hgb [14.0-18.0 g/dL] 14.2 g/dL 16.2 g/dL (01/27/18 4:02 AM) (01/26/18 4:45 PM) Hct [42.0-54.0 %] 42.0 % 47.8 % (01/27/18 4:02 AM) (01/26/18 4:45 PM) MCV [80.0-94.0 fL] 89.7 fL 89.3 fL (01/27/18 4:02 AM) (01/26/18 4:45 PM) MCH [27.0-31.0 pg] 30.4 pg 30.2 pg (01/27/18 4:02 AM) (01/26/18 4:45 PM) MCHC [32.0-36.0 33.9 g/dL 33.8 g/dL g/dL] (01/27/18 4:02 AM) (01/26/18 4:45 PM) RDW [11.5-14.5 %] 13.8 % 14.1 % (01/27/18 4:02 AM) (01/26/18 4:45 PM) MPV [7.4-10.4 fL] 8.4 fL 8.1 fL (01/27/18 4:02 AM) (01/26/18 4:45 PM) Platelet [133-450 246 K/CMM 284 K/CMM K/CMM] (01/27/18 4:02 AM) (01/26/18 4:45 PM) Segs [45.0-75.0 %] 59.0 % 72.3 % (01/27/18 4:02 AM) (01/26/18 4:45 PM) Lymphocytes 27.3 % 15.7 % [20.0-40.0 %] (01/27/18 4:02 AM) *LOW* (01/26/18 4:45 PM) Monocytes [2.0-12.0 9.4 % 8.7 % %] (01/27/18 4:02 AM) (01/26/18 4:45 PM) Eosinophils [0.0-4.0 3.8 % 2.6 % %] (01/27/18 4:02 AM) (01/26/18 4:45 PM) Basophils [0.0-1.0 0.5 % 0.7 % %] (01/27/18 4:02 AM) (01/26/18 4:45 PM) Neutrophils # 4.3 K/CMM 8.0 K/CMM [1.5-8.1 K/CMM] (01/27/18 4:02 AM) (01/26/18 4:45 PM) Lymphocytes # 2.0 K/CMM 1.7 K/CMM [1.0-5.5 K/CMM] (01/27/18 4:02 AM) (01/26/18 4:45 PM) Monocytes # [0.0-0.8 0.7 K/CMM 1.0 K/CMM K/CMM] (01/27/18 4:02 AM) *HI* (01/26/18 4:45 PM) Eosinophils # 0.3 K/CMM 0.3 K/CMM [0.0-0.5 K/CMM] (01/27/18 4:02 AM) (01/26/18 4:45 PM) Basophils # [0.0-0.2 0.1 K/CMM K/CMM] (01/26/18 4:45 PM) Microbiology Reports TEST: Culture: Wound/Abscess w/Gram Stain STATUS: Auth (Verified) BODY SITE: Nasopharyngeal Swab SOURCE: Abscess COLLECTED DATE/TIME: 01/26/18 10:33 PM FINAL REPORT Many Staphylococcus aureus STAIN REPORT No Wbc'S Or Organisms Seen ORGANISM:Staphylococcus aureus Immunizations Given and Recorded Vaccine Date Status Refusal Reason diphtheria/pertussis, acel/tetanus adult 01/26/18 Given diphtheria/pertussis, acel/tetanus adult 10/27/16 Given Procedures No data available for this section Social History Social History Type Response Substance Abuse Use: Past. Type: Cocaine. Recreational Drug Route: Inhaled.1 Alcohol Current, Type Beer. Frequency: 1-2 times per month. Smoking Status Never smoker; Previous treatment: None; Ready to change: No; Concerns about tobacco use in household: No; Exposure to Tobacco Smoke None; Cigarette Smoking Last 365 Days No; Reg Smoking Cessation Counseling No entered on: 01/26/18 1Used to smoke Marijuana Assessment and Plan Extracted from: Title: [facility] Author: Matt Mcintyre MD Date: 01/27/18 Hospitalist Service Discharge Summary [facility] Hospitalist Service Discharge Summary PATIENT NAME:STUART LEBRON ATTENDING: MATT GARCIA JR, MD ADMISSION DATE: 01/26/2018 13:36 DISCHARGE DATE: 01/27/2018 19:51 DISCHARGE DIAGNOSIS: Cutaneous abscess of neck (L02.11) Type 2 diabetes mellitus without complications (E11.9) CONSULTING PHYSICIANS/SERVICES: Goldy Mireles MDOffice: Service: General Surgery DISCHARGE CONDITION: Fair HISTORY OF PRESENT ILLNESS: Please see admission history and physical for presenting details HOSPITAL COURSE: Patient was admitted secondary to an abscess on posterior neck. Patient was started on IV antibiotic therapy. Should be noted the patient had a small incision and drainage done at bedside while in the emergency room. Patient has diabetes which is likely a bacterial development of the abscess. As requested by the emergency room, general surgery was consulted. General surgery requested a consultation by ENT however ENT was not available. General surgery was made aware of this. Patient's blood sugars were managed with insulin NPH and regular insulin, which he was discharged on. Ultimately, the patient was not seen by general surgery. However, patient was found to be a suitable condition for discharge with close follow-up. I saw and examined patient on day of discharge. Patient was discharged in fair condition with appropriate medications and appropriate follow-up. DISCHARGE INSTRUCTIONS: Please notify your physician if any of the following occur: Bleeding, Fever, Nausea, Pain, Shortness of breath, Signs of infection, Swelling Other Information Special Home Care Instructions: Place warm compress on back of neck frequently throughout day. Wound can be allowed to drain. Express purulence from wound and clean hands and wound with soap and water. OK to use rubbing alcohol on wound as well. Take antibiotics to completion. Activity: Activity as tolerated, No strenuous activity DISCHARGE DIET: Diet carbohydrate diet DISCHARGE MEDICATIONS: PLEASE SEE R FOR DETAILS PERTAINING TO DISCHARGE MEDICATIONS DISCHARGE FOLLOWUP: Giovanny Garcia MD, Call for appointment, within: 1 Week, reason: Primary Care Physician follow up post hospitalization A total of 34 minutes was spent planning discharge which included bedside counseling. Extracted from: Title: Clinical Document Author: Goldy Mireles MD Date: 01/27/18 First notice this am about consult. I have requested ENT consult attempt. Please reconsult if not available.
--- OUTSIDE RECORDS SUMMARY | 2018-08-28 01:35 | XMS REPORT | Continuity of Care Document ---
Author Author [facility] Interface Address Unknown Phone Unavailable Problems Problem Status Onset Date Classification Date Reported Comments Source Cutaneous abscess of neck 02/07/2018 08/16/2018 [facility] ABSCESS Active 01/26/2018 [facility] ABSCESS, NECK, DIABETES Active 01/26/2018 [facility] Abdominal pain 10/22/2017 10/25/2017 [facility] Hyperglycemia due to type 2 diabetes mellitus 10/22/2017 10/25/2017 [facility] ABD PAIN Active 10/22/2017 [facility] Hypercholesteremia Resolved Problem 08/16/2018 [facility] Type 2 diabetes mellitus with hyperglycemia 08/16/2018 [facility] alf use of insulin 08/16/2018 [facility] Hypo-osmolality and hyponatremia 08/16/2018 [facility] Type II diabetes mellitus poorly controlled Active Problem 08/16/2018 [facility] Medications Medication Details Route Status Patient Instructions Ordering Provider Order Date Source insulin isophane-insulin regular human recombinant 70 units-30 units/mL subcutaneous injection 40 unit, SUB-Q, BID, # 10 mL, 3 Refill(s), Pharmacy: [id number] Active 01/28/2018 [facility] clindamycin 300 mg oral capsule 300 mg=1 cap, PO, Q6H, X 10 day, # 40 cap, 0 Refill(s), Pharmacy: [facility] [id number] No Longer Active 01/28/2018 [facility] insulin, isophane 15 unit, 0.15 mL, Route: SUB-Q, Drug form: INJ, BID, Dosing Weight 143.182, kg, Priority: NOW, Start date: 01/27/18 9:18:00 CDT, Duration: 30 day, Stop date: 02/26/18 9:00:00 CDTNotes: Roll in palms of hands gently; Do not shake vigorously. (Same as: Humulin N) Do not hold insulin without contacting prescriber WASTE: F/P - Black; E - [employer] Stable for 28 days at room temperature Expires in days from Date Inactive 01/27/2018 [facility] Dextrose 50% Syringe 25 gm, 50 mL, Route: IVP, Drug Form: INJ, Dosing Weight 143.182, kg, PRN, PRN Blood Glucose Results, Start date: 01/27/18 9:13:00 CDT, Duration: 30 day, Stop date: 02/26/18 9:12:00 CDT Inactive 01/27/2018 [facility] Glucagon 1 mg, Route: IM, Drug form: PDR/INJ, PRN, Dosing Weight 143.182, kg, PRN Blood Glucose Results, Start date: 01/27/18 9:13:00 CDT, Duration: 30 day, Stop date: 02/26/18 9:12:00 CDT Inactive 01/27/2018 [facility] Insulin Lispro 2 unit, 0.02 mL, Route: SUB-Q, Drug form: SOLN, TID-Before Meals, Dosing Weight 143.182, kg, PRN Blood Glucose Results, Start date: 01/27/18 9:13:00 CDT, Duration: 30 day, Stop date: 02/26/18 9:12:00 CDTNotes: (Same as: Humalog ) Roll in palms of hands gently; Do not shake `vigorously. "Single Patient Use Only " WASTE: F/P - Black; E - [employer] Stable for 28 days at room temperature. Expires in days from Date Inactive 01/27/2018 [facility] Acetaminophen 325 MG / Hydrocodone Bitartrate 5 MG Oral Tablet [Stanford 5/325] 1 tab, Route: PO, Drug Form: TAB, Dosing Weight 143.182, kg, Q4H, PRN Pain Score 6-10, NOW, Start date: 01/27/18 4:02:00 CDT, Duration: 30 day, Stop date: 02/26/18 4:01:00 CDTNotes: (Same as: Stanford 325/5) Do not exceed 4gm/day of acetaminophen. Inactive 01/27/2018 [facility] Saline Flush 0.9% 10 ml, Route: IVP, Drug Form: INJ, Dosing Weight 143.182, kg, PRN, PRN Line Flush, Start date: 01/26/18 22:14:00 CDT, Duration: 30 day, Stop date: 02/25/18 22:13:00 CDTNotes: (Same as: BD Posiflush) No Longer Active 01/27/2018 [facility] Acetaminophen 650 mg, 2 tab, Route: PO, Drug form: TAB, Q4H, Dosing Weight 143.182, kg, PRN Pain 1-3/Temp > 100.4 F, Start date: 01/26/18 22:14:00 CDT, Duration: 30 day, Stop date: 02/25/18 22:13:00 CDTNotes: Do not exceed 4 gm/day. (Same as: Tylenol) No Longer Active 01/27/2018 [facility] Sodium Chloride 0.9% IV 1,000 mL 1,000 mL, Rate: 75 ml/hr, Infuse over: 13.3 hr, Route: IV, Dosing Weight 143.182 kg, Total Volume: 1,000, Start date: 01/26/18 22:14:00 CDT, Duration: 30 day, Stop date: 02/25/18 22:13:00 CDT, 2.66, m2 No Longer Active 01/27/2018 [facility] Clindamycin 900 mg, 50 mL, Route: IVPB, Drug form: INJ, ABXQ8H, Dosing Weight 143.182, kg, Start date: 01/26/18 22:00:00 CDT, Duration: 1 day, Stop date: 01/27/18 14:00:00 CDT, ABX Indication: Skin/Soft Tissue I nfection No Longer Active 01/27/2018 [facility] Dextrose 50% Syringe 25 gm, 50 mL, Route: IVP, Drug Form: INJ, Dosing Weight 143.182, kg, PRN, PRN Blood Glucose Results, Start date: 01/26/18 21:48:00 CDT, Duration: 30 day, Stop date: 02/25/18 21:47:00 CDT No Longer Active 01/27/2018 [facility] Glucagon 1 mg, Route: IM, Drug form: PDR/INJ, PRN, Dosing Weight 143.182, kg, PRN Blood Glucose Results, Start date: 01/26/18 21:48:00 CDT, Duration: 30 day, Stop date: 02/25/18 21:47:00 CDT No Longer Active 01/27/2018 [facility] Insulin regular 10 unit, 0.1 mL, Route: IV, Drug form: INJ, ONCE, Dosing Weight 136.364, kg, Priority: STAT, Start date: 01/26/18 18:00:00 CDT, Stop date: 01/26/18 18:00:00 CDTNotes: (Same as: Humulin R and NovoLIN R) WASTE: F/P - Black; E - [employer] (Do not shake) Inactive 01/26/2018 [facility] NS (Bolus) IV 1,000 mL, 1,000 ml/hr, Infuse Over: 1 hr, Route: IV, 1,000, Drug form: INJ, ONCE, Priority: STAT, Dosing Weight 136.364 kg, Start date: 01/26/18 18:00:00 CDT, Stop date: 01/26/18 18:00:00 CDT Inactive 01/26/2018 [facility] Dextrose 50% Syringe 25 gm, 50 mL, Route: IVP, Drug Form: INJ, Dosing Weight 136.364, kg, PRN, PRN Blood Glucose Results, Start date: 01/26/18 16:25:00 CDT, Duration: 30 day, Stop date: 02/25/18 16:24:00 CDT Inactive 01/26/2018 [facility] Glucagon 1 mg, Route: IM, Drug form: PDR/INJ, PRN, Dosing Weight 136.364, kg, PRN Blood Glucose Results, Start date: 01/26/18 16:25:00 CDT, Duration: 30 day, Stop date: 02/25/18 16:24:00 CDT Inactive 01/26/2018 [facility] Sodium Chloride 0.9% (Bolus) IV 1,000 mL, 1000 ml/hr, Infuse Over: 1 hr, Route: IV, 1,000, Drug form: INJ, ONCE, Priority: STAT, Dosing Weight 136.364 kg, Start date: 01/26/18 16:25:00 CDT, Stop date: 01/26/18 16:25:00 CDT Inactive 01/26/2018 [facility] Saline Flush 0.9% 10 mL, Route: IVP, Drug Form: INJ, Dosing Weight 136.364, kg, PRN, PRN Line Flush, Start date: 01/26/18 16:25:00 CDT, Duration: 30 day, Stop date: 02/25/18 16:24:00 CDTNotes: (Same as: BD Posiflush) Inactive 01/26/2018 [facility] Clindamycin 600 mg, 4 mL, Route: IM, Drug form: INJ, ONCE, Dosing Weight 136.364, kg, Priority: STAT, Start date: 01/26/18 15:28:00 CDT, Stop date: 01/26/18 15:28:00 CDT, ABX Indication: Skin/Soft Tissue InfectionN otes: (clindamycin 150 mg/1 ml (600 mg/4 ml VL) INJ) (Same As: Cleocin) Inactive 01/26/2018 [facility] Acetaminophen 325 MG / Hydrocodone Bitartrate 5 MG Oral Tablet [Stanford 5/325] 1 tab, Route: PO, Drug Form: TAB, Dosing Weight 136.364, kg, ONCE, STAT, Start date: 01/26/18 15:19:00 CDT, Stop date: 01/26/18 15:19:00 CDTNotes: (Same as: Stanford 325/5) Do not exceed 4gm/day of acetaminophen. Inactive 01/26/2018 [facility] Clindamycin 900 mg, 6 mL, Route: IM, Drug form: INJ, ONCE, Dosing Weight 136.364, kg, Priority: STAT, Start date: 01/26/18 15:19:00 CDT, Stop date: 01/26/18 15:19:00 CDT, ABX Indication: Skin/Soft Tissue Infecti onNotes: (Same As: Cleocin) Inactive 01/26/2018 [facility] Acetaminophen 325 MG / Hydrocodone Bitartrate 10 MG Oral Tablet [Stanford 10/325] 1 tab, Route: PO, Drug Form: TAB, Dosing Weight 136.364, kg, ONCE, STAT, Start date: 01/26/18 14:25:00 CDT, Stop date: 01/26/18 14:25:00 CDT Inactive 01/26/2018 [facility] Ranitidine 150 MG Oral Tablet [Zantac] 150 mg=1 tab, PO, BID, # 60 tab, 0 Refill(s) Active 10/23/2017 [facility] Ondansetron 4 MG Disintegrating Tablet [Zofran] 4 mg=1 tab, PO, Q8H, PRN as needed for nausea/vomiting, # 12 tab, 0 Refill(s) Active 10/23/2017 [facility] Dicyclomine Hydrochloride 20 MG Oral Tablet [Bentyl] 20 mg=1 tab, PO, QID-Before Meals, # 20 tab, 0 Refill(s) Active 10/23/2017 [facility] Insulin regular 10 unit, 0.1 mL, Route: IVP, Drug form: INJ, ONCE, Dosing Weight 136.364, kg, Priority: STAT, Start date: 10/22/17 19:29:00 CDT, Stop date: 10/22/17 19:29:00 CDTNotes: (Same as: Humulin R and NovoLIN R) WASTE: F/P - Black; E - [employer] (Do not shake) Inactive 10/23/2017 [facility] GI cocktail 30 mL, Route: PO, Drug Form: SUSP, Dosing Weight 136.364, kg, ONCE, STAT, Start date: 10/22/17 19:26:00 CDT, Stop date: 10/22/17 19:26:00 CDTNotes: G.I. Cocktail=antacid with simethicone 22.5 mL - lidocaine viscous 7.5 mL Inactive 10/23/2017 [facility] Famotidine 20 mg, 1 tab, Route: PO, Drug form: TAB, ONCE, Dosing Weight 136.364, kg, Priority: STAT, Start date: 10/22/17 19:26:00 CDT, Stop date: 10/22/17 19:26:00 CDTNotes: (Same as: Pepcid) Inactive 10/23/2017 [facility] Bentyl 20 mg, 2 mL, Route: IM, Drug form: INJ, ONCE, Dosing Weight 136.364, kg, Priority: STAT, Start date: 10/22/17 19:26:00 CDT, Stop date: 10/22/17 19:26:00 CDTNotes: (Same as: Bentyl) Inactive 10/23/2017 [facility] Saline Flush 0.9% 10 mL, Route: IVP, Drug Form: INJ, Dosing Weight 136.364, kg, PRN, PRN Line Flush, Start date: 10/22/17 15:43:00 CDT, Duration: 30 day, Stop date: 11/21/17 15:42:00 CDTNotes: (Same as: BD Posiflush) No Longer Active 10/22/2017 [facility] Sodium Chloride 0.9% (Bolus) IV 1,000 mL, 1000 ml/hr, Infuse Over: 1 hr, Route: IV, 1,000, Drug form: INJ, ONCE, Priority: STAT, Dosing Weight 136.364 kg, Start date: 10/22/17 15:43:00 CDT, Stop date: 10/22/17 15:43:00 CDT Inactive 10/22/2017 [facility] Allergies, Adverse Reactions, Alerts Substance Category Reaction Severity Reaction type Status Date Reported Comments Source Immunizations Immunization Date Given Site Status Last Updated Comments Source diphtheria/pertussis, acel/tetanus adult 01/26/2018 Right deltoid completed Inge [facility] diphtheria/pertussis, acel/tetanus adult 10/28/2016 Right deltoid completed Reyna [facility] Results Order Name Results Value Reference Range Date Interpretation Comments Source CHEM PANEL Bili Total 0.4 mg/dL 0.2 - 1.3 01/27/2018 [facility] CHEM PANEL Alk Phos 107 unit/L 39 - 136 01/27/2018 [facility] CHEM PANEL ALT 26 unit/L 0 - 65 01/27/2018 [facility] CHEM PANEL AST 23 unit/L 0 - 37 01/27/2018 [facility] CHEM PANEL A/G Ratio 0.9 0.7 - 1.6 01/27/2018 [facility] CHEM PANEL Globulin 3.5 g/dL 2.7 - 4.2 01/27/2018 [facility] CHEM PANEL eGFR 114 mL/min/1.73m2 01/27/2018 Result Comment: The eGFR is calculated using [...] should be multiplied by the estimated BMI. [facility] CHEM PANEL Albumin Lvl 3.1 g/dL 3.5 - 5.0 01/27/2018 [facility] CHEM PANEL CO2 28 meq/L 24 - 32 01/27/2018 [facility] CHEM PANEL Chloride Lvl 101 meq/L 95 - 109 01/27/2018 [facility] CHEM PANEL Potassium Lvl 4.0 meq/L 3.5 - 5.1 01/27/2018 [facility] CHEM PANEL Sodium Lvl 136 meq/L 135 - 145 01/27/2018 [facility] CHEM PANEL Creatinine Lvl 0.82 mg/dL 0.50 - 1.40 01/27/2018 [facility] CHEM PANEL B/C Ratio 18 6 - 25 01/27/2018 [facility] CHEM PANEL Total Protein 6.6 g/dL 6.4 - 8.4 01/27/2018 [facility] CHEM PANEL Calcium Lvl 8.2 mg/dL 8.5 - 10.5 01/27/2018 [facility] CHEM PANEL AGAP 11.0 meq/L 10.0 - 20.0 01/27/2018 [facility] CHEM PANEL BUN 15 mg/dL 7 - 22 01/27/2018 [facility] CHEM PANEL Glucose Lvl 307 mg/dL 70 - 99 01/27/2018 [facility] HEMATOLOGY Hgb 14.2 g/dL 14.0 - 18.0 01/27/2018 [facility] RBC 4.68 M/CMM 4.70 - 6.10 01/27/2018 [facility] WBC 7.2 K/CMM 3.7 - 10.4 01/27/2018 [facility] Hct 42.0 % 42.0 - 54.0 01/27/2018 [facility] MPV 8.4 fL 7.4 - 10.4 01/27/2018 [facility] Platelet 246 K/CMM 133 - 450 01/27/2018 [facility] RDW 13.8 % 11.5 - 14.5 01/27/2018 [facility] MCHC 33.9 g/dL 32.0 - 36.0 01/27/2018 [facility] MCH 30.4 pg 27.0 - 31.0 01/27/2018 [facility] MCV 89.7 fL 80.0 - 94.0 01/27/2018 [facility] HEMATOLOGY Segs 59.0 % 45.0 - 75.0 01/27/2018 [facility] HEMATOLOGY Lymphocytes 27.3 % 20.0 - 40.0 01/27/2018 [facility] HEMATOLOGY Eosinophils 3.8 % 0.0 - 4.0 01/27/2018 [facility] HEMATOLOGY Basophils 0.5 % 0.0 - 1.0 01/27/2018 [facility] Monocytes 9.4 % 2.0 - 12.0 01/27/2018 [facility] Lymphocytes # 2.0 K/CMM 1.0 - 5.5 01/27/2018 [facility] HEMATOLOGY Neutrophils # 4.3 K/CMM 1.5 - 8.1 01/27/2018 [facility] Monocytes # 0.7 K/CMM 0.0 - 0.8 01/27/2018 [facility] Eosinophils # 0.3 K/CMM 0.0 - 0.5 01/27/2018 [facility] IMMUNOLOGY C-REACTIVE PROTEIN 26.1 mg/L <=2.9 mg/L 01/27/2018 [facility] SPECIAL CHEMISTRY Hgb A1C 13.1 % <=5.6 % 01/27/2018 [facility] CHEM PANEL Lactic Acid Lvl 1.0 mMol/L 0.5 - 2.2 01/27/2018 [facility] VANCOMYCIN:SUSC:PT:ISOLATE:ORDQN:OLIVIA Gram Stain Report No Wbc'S Or Organisms Seen 01/27/2018 [facility] VANCOMYCIN:SUSC:PT:ISOLATE:ORDQN:OLIVIA Culture: Wound/Abscess w/Gram Stain Many Staphylococcus aureus 01/27/2018 [facility] VANCOMYCIN:SUSC:PT:ISOLATE:ORDQN:OLIVIA Staphylococcus aureus Staphylococcus aureus 01/27/2018 [facility] CHEM PANEL Lactic Acid Lvl 1.2 mMol/L 0.5 - 2.2 01/26/2018 [facility] CHEM PANEL Ketone Quantitative 0.26 mmol/L <=0.27 mmol/L 01/26/2018 [facility] CHEM PANEL eGFR 102 mL/min/1.73m2 01/26/2018 Result Comment: The eGFR is calculated using [...] should be multiplied by the estimated BMI. [facility] CHEM PANEL Glucose Lvl 496 mg/dL 70 - 99 01/26/2018 Result Comment: Critical Result(s) called to eamon at 01/26/2018 17:57by gonzalez Read back OK. [facility] CHEM PANEL Sodium Lvl 132 meq/L 135 - 145 01/26/2018 [facility] CHEM PANEL Creatinine Lvl 0.96 mg/dL 0.50 - 1.40 01/26/2018 [facility] CHEM PANEL BUN 17 mg/dL 7 - 22 01/26/2018 [facility] CHEM PANEL AGAP 13.4 meq/L 10.0 - 20.0 01/26/2018 [facility] CHEM PANEL CO2 26 meq/L 24 - 32 01/26/2018 [facility] CHEM PANEL Chloride Lvl 97 meq/L 95 - 109 01/26/2018 [facility] CHEM PANEL Potassium Lvl 4.4 meq/L 3.5 - 5.1 01/26/2018 [facility] CHEM PANEL Calcium Lvl 9.2 mg/dL 8.5 - 10.5 01/26/2018 [facility] MCV 89.3 fL 80.0 - 94.0 01/26/2018 [facility] Hct 47.8 % 42.0 - 54.0 01/26/2018 [facility] RBC 5.35 M/CMM 4.70 - 6.10 01/26/2018 [facility] Hgb 16.2 g/dL 14.0 - 18.0 01/26/2018 [facility] WBC 11.1 K/CMM 3.7 - 10.4 01/26/2018 [facility] Platelet 284 K/CMM 133 - 450 01/26/2018 [facility] MPV 8.1 fL 7.4 - 10.4 01/26/2018 [facility] RDW 14.1 % 11.5 - 14.5 01/26/2018 [facility] MCH 30.2 pg 27.0 - 31.0 01/26/2018 [facility] HEMATOLOGY MCHC 33.8 g/dL 32.0 - 36.0 01/26/2018 [facility] HEMATOLOGY Basophils # 0.1 K/CMM 0.0 - 0.2 01/26/2018 [facility] HEMATOLOGY Monocytes # 1.0 K/CMM 0.0 - 0.8 01/26/2018 [facility] HEMATOLOGY Lymphocytes # 1.7 K/CMM 1.0 - 5.5 01/26/2018 [facility] HEMATOLOGY Eosinophils # 0.3 K/CMM 0.0 - 0.5 01/26/2018 [facility] HEMATOLOGY Basophils 0.7 % 0.0 - 1.0 01/26/2018 [facility] HEMATOLOGY Neutrophils # 8.0 K/CMM 1.5 - 8.1 01/26/2018 [facility] HEMATOLOGY Lymphocytes 15.7 % 20.0 - 40.0 01/26/2018 [facility] HEMATOLOGY Monocytes 8.7 % 2.0 - 12.0 01/26/2018 [facility] HEMATOLOGY Eosinophils 2.6 % 0.0 - 4.0 01/26/2018 [facility] Segs 72.3 % 45.0 - 75.0 01/26/2018 [facility] URINE AND STOOL UA Urobilinogen <=1.0 mg/dL 0.1 - 1.0 10/22/2017 [facility] URINE AND STOOL UA Color Ltyellow 10/22/2017 [facility] URINE AND STOOL UA Sq Epi None Seen 10/22/2017 [facility] URINE AND STOOL UA Nitrite Negative (10/22/17 5:16 PM) Negative 10/22/2017 [facility] URINE AND STOOL UA Leuk Est Negative (10/22/17 5:16 PM) Negative 10/22/2017 [facility] URINE AND STOOL UA Bili Negative *NA* (10/22/17 5:16 PM) Negative 10/22/2017 [facility] URINE AND STOOL UA Blood Negative (10/22/17 5:16 PM) Negative 10/22/2017 [facility] URINE AND STOOL UA Turbidity Clear (10/22/17 5:16 PM) Clear 10/22/2017 [facility] URINE AND STOOL UA Spec Grav 1.033 <=1.030 10/22/2017 [facility] URINE AND STOOL UA pH 6.0 5.0 - 8.0 10/22/2017 [facility] URINE AND STOOL UA Protein Negative mg/dL Negative mg/dL 10/22/2017 [facility] URINE AND STOOL UA Glucose 500 mg/dL Negative mg/dL 10/22/2017 [facility] URINE AND STOOL UA Ketones Negative mg/dL Negative mg/dL 10/22/2017 [facility] CHEM PANEL Globulin 3.8 g/dL 2.7 - 4.2 10/22/2017 [facility] CHEM PANEL A/G Ratio 1.0 0.7 - 1.6 10/22/2017 [facility] CHEM PANEL Bili Indirect null 0.0 - 1.0 10/22/2017 [facility] CHEM PANEL Bili Direct null 0.0 - 0.3 10/22/2017 [facility] CHEM PANEL Alk Phos 243 unit/L 39 - 136 10/22/2017 [facility] CHEM PANEL ALT 60 unit/L 0 - 65 10/22/2017 [facility] CHEM PANEL Bili Total 0.6 mg/dL 0.2 - 1.3 10/22/2017 [facility] CHEM PANEL Total Protein 7.6 g/dL 6.4 - 8.4 10/22/2017 [facility] CHEM PANEL AST 23 unit/L 0 - 37 10/22/2017 [facility] CHEM PANEL Albumin Lvl 3.8 g/dL 3.5 - 5.0 10/22/2017 [facility] CHEM PANEL Lipase Lvl 209 unit/L 73 - 393 10/22/2017 [facility] CHEM PANEL Ketone Quantitative 0.10 mmol/L <=0.27 mmol/L 10/22/2017 [facility] ELECTROLYTES AGAP 8.7 meq/L 10.0 - 20.0 10/22/2017 [facility] ELECTROLYTES eGFR 93 mL/min/1.73m2 10/22/2017 Result Comment: The [...] should be multiplied by the estimated BMI. [facility] ELECTROLYTES Calcium Lvl 9.3 mg/dL 8.5 - 10.5 10/22/2017 [facility] ELECTROLYTES CO2 33 meq/L 24 - 32 10/22/2017 [facility] ELECTROLYTES Chloride Lvl 99 meq/L 95 - 109 10/22/2017 [facility] ELECTROLYTES Sodium Lvl 136 meq/L 135 - 145 10/22/2017 [facility] ELECTROLYTES Potassium Lvl 4.7 meq/L 3.5 - 5.1 10/22/2017 [facility] ELECTROLYTES Creatinine Lvl 1.03 mg/dL 0.50 - 1.40 10/22/2017 [facility] ELECTROLYTES Glucose Lvl 388 mg/dL 70 - 99 10/22/2017 [facility] ELECTROLYTES BUN 17 mg/dL 7 - 22 10/22/2017 [facility] HEMATOLOGY MCHC 33.7 g/dL 32.0 - 36.0 10/22/2017 [facility] HEMATOLOGY Hct 48.5 % 42.0 - 54.0 10/22/2017 [facility] Hgb 16.4 g/dL 14.0 - 18.0 10/22/2017 [facility] MPV 8.8 fL 7.4 - 10.4 10/22/2017 [facility] MCH 30.3 pg 27.0 - 31.0 10/22/2017 [facility] MCV 90.0 fL 80.0 - 94.0 10/22/2017 [facility] RBC 5.40 M/CMM 4.70 - 6.10 10/22/2017 [facility] WBC 7.1 K/CMM 3.7 - 10.4 10/22/2017 [facility] Platelet 206 K/CMM 133 - 450 10/22/2017 [facility] RDW 13.7 % 11.5 - 14.5 10/22/2017 [facility] HEMATOLOGY Basophils # 0.1 K/CMM 0.0 - 0.2 10/22/2017 [facility] HEMATOLOGY Eosinophils # 0.2 K/CMM 0.0 - 0.5 10/22/2017 [facility] HEMATOLOGY Monocytes # 0.5 K/CMM 0.0 - 0.8 10/22/2017 [facility] HEMATOLOGY Lymphocytes # 1.2 K/CMM 1.0 - 5.5 10/22/2017 [facility] Lymphocytes 17.6 % 20.0 - 40.0 10/22/2017 [facility] HEMATOLOGY Monocytes 7.2 % 2.0 - 12.0 10/22/2017 [facility] HEMATOLOGY Segs 71.5 % 45.0 - 75.0 10/22/2017 [facility] HEMATOLOGY Segs-Bands # 5.1 K/CMM 1.5 - 8.1 10/22/2017 [facility] HEMATOLOGY Basophils 0.9 % 0.0 - 1.0 10/22/2017 [facility] HEMATOLOGY Eosinophils 2.8 % 0.0 - 4.0 10/22/2017 [facility] ED Abdomen/Pelvis IV contrast only CT ED Abdomen/Pelvis IV contrast only CT Patient Name: STUART LEBRON : 1980; Age: 37 years y/o Male MR: [id number] Study: ED Abdomen/Pelvis IV contrast only CT 10/22/2017 3:43 PM CDT Ordering Physician: Clinical Indication: - Acute pain left lower abdomen. Pain with palpation. Concerning for colitis versus diverticulitis.; Comparison: None TECHNIQUE: Helical imaging was performed diaphragm through the symphysis with multiplanar reformations obtained. IV CONTRAST: 100cc Omnipaque 300 GI CONTRAST: None CT Radiation Dose: SUU=[id number] mGy-cm FINDINGS: LOWER CHEST: The lung bases [...] to better assess the colon wall. SL: [id number] 10/22/2017 - - Read by: Ilya Rousseau MD Dictated Date/time: 10/22/17 17:33 Electronically Signed by: Ilya Rousseau MD 10/22/17 17:55 FINAL REPORT [facility] Vital Signs Vital Sign Value Date Comments Source Systolic (mm Hg) 111 01/27/2018 [facility] Diastolic (mm Hg) 71 01/27/2018 [facility] Respitory Rate 19 01/27/2018 [facility] Heart Rate 55 01/27/2018 [facility] Temperature Oral (F) 98.4 F 01/27/2018 [facility] Respitory Rate 17 01/27/2018 [facility] Systolic (mm Hg) 115 01/27/2018 [facility] Diastolic (mm Hg) 76 01/27/2018 [facility] Temperature Oral (F) 98.3 F 01/27/2018 [facility] Heart Rate 57 01/27/2018 [facility] Respitory Rate 18 01/27/2018 [facility] Heart Rate 49 01/27/2018 [facility] Temperature Oral (F) 97.6 F 01/27/2018 [facility] Systolic (mm Hg) 106 01/27/2018 [facility] Diastolic (mm Hg) 64 01/27/2018 [facility] Height 172.72 cm 01/27/2018 [facility] BMI Calculated 48 01/27/2018 [facility] Weight 143.182 01/27/2018 [facility] Temperature Oral (F) 98.7 F 10/23/2017 [facility] Systolic (mm Hg) 134 10/23/2017 [facility] Diastolic (mm Hg) 84 10/23/2017 [facility] Respitory Rate 16 10/23/2017 [facility] Heart Rate 89 10/23/2017 [facility] Heart Rate 88 10/23/2017 [facility] Respitory Rate 18 10/23/2017 [facility] Systolic (mm Hg) 138 10/23/2017 [facility] Diastolic (mm Hg) 81 10/23/2017 [facility] Temperature Oral (F) 98.6 F 10/23/2017 [facility] Systolic (mm Hg) 146 10/22/2017 [facility] Diastolic (mm Hg) 100 10/22/2017 [facility] Heart Rate 81 10/22/2017 [facility] Respitory Rate 18 10/22/2017 [facility] Temperature Oral (F) 98.1 F 10/22/2017 [facility] Weight 136.364 10/22/2017 [facility] BMI Calculated 44.4 10/22/2017 [facility] Height 175.26 cm 10/22/2017 [facility] Encounters Location Location Details Encounter Type Encounter Number Reason For Visit Attending Provider ADM Date DC Date Status Source [facility] Emergency [id number] Cat Eleonora 10/22/2017 10/23/2017 [facility] Observation [id number] En Brown 01/26/2018 01/28/2018 [facility] Procedures Procedure Code Date Perfomer Comments Source
== END 2018-08-28 02:49 | disposition home or self-care (01) ==
LOC: ER 01:31
DX: N47.6 Balanoposthitis (principal); E11.9 Type 2 diabetes mellitus without complications
CPT/HCPCS: 99282

== ENCOUNTER 2019-08-16 11:43 | Emergency (ER) | payer SELFPAY ==
[~2019-08-16] VITALS: Ht 177.8 cm; Wt 136.1 kg
== END 2019-08-16 12:26 | disposition home or self-care (01) ==
LOC: ER 11:43
DX: S80.01XA Contusion of right knee, initial encounter (principal); W01.0XXA Fall on same level from slipping, tripping and stumbling without subsequent striking against object, initial encounter; Y92.512 Supermarket, store or market as the place of occurrence of the external cause; E11.9 Type 2 diabetes mellitus without complications
CPT/HCPCS: 99281

== ENCOUNTER 2020-08-19 17:19 | Emergency (ER) | payer SELFPAY ==
[~2020-08-19] VITALS: Ht 177.8 cm; Wt 117.9 kg
[2020-08-19] MEDS ORDERED: METHYLPREDNISOLONE SOD SUCC 125 MG/2ML VIAL IM ONE (18:15)
[2020-08-19] MEDS ORDERED: KETOROLAC TROMETHAMINE 60 MG/2 ML VIAL IM ONE (18:15)
[2020-08-19] MEDS ORDERED: ROBAXIN-750750 MG PO (19:54)
[2020-08-19] MEDS ORDERED: NAPROXEN250 MG PO (19:54)
[2020-08-19 20:20] VITALS: BP 124/84
[2020-08-19] MEDS ORDERED: DIAZEPAM 5 MG TAB PO ONE (20:45)
[2020-08-19] MEDS ORDERED: HYDROCODONE/APAP 10MG-325MG TAB PO ONE (20:45)
== END 2020-08-19 21:18 | disposition home or self-care (01) ==
LOC: ER 18:00
DX: M51.37 Other intervertebral disc degeneration, lumbosacral region (principal); E11.9 Type 2 diabetes mellitus without complications; E66.01 Morbid (severe) obesity due to excess calories
CPT/HCPCS: 72072; 72110; 99283; J1885; J2930

== ENCOUNTER 2020-12-11 22:18 | Emergency (ER) | payer SELFPAY ==
[~2020-12-11] VITALS: Ht 177.8 cm; Wt 117.9 kg
[~2020-12-11 22:18] MED LIST changes: +NAPROXEN250 MG PO; +ROBAXIN-750750 MG PO
[2020-12-11] MEDS ORDERED: METHOCARBAMOL750 MG PO (22:40)
[2020-12-11] MEDS ORDERED: NAPROXEN250 MG PO (22:40)
== END 2020-12-11 22:45 | disposition home or self-care (01) ==
LOC: ER 22:37
DX: M54.5 Low back pain (principal); M51.37 Other intervertebral disc degeneration, lumbosacral region; G89.29 Other chronic pain; E11.9 Type 2 diabetes mellitus without complications; E66.01 Morbid (severe) obesity due to excess calories
CPT/HCPCS: 99282

== ENCOUNTER 2021-02-20 23:42 | Emergency (ER) | payer SELFPAY ==
[~2021-02-20] VITALS: Ht 177.8 cm; Wt 117.9 kg
[~2021-02-20 23:42] MED LIST changes: +METHOCARBAMOL750 MG PO
[2021-02-21] MEDS ORDERED: LIDOCAINE 4% PATCH TP STA (00:35)
[2021-02-21] MEDS ORDERED: DEXAMETHASONE 4 MG TAB PO STA (00:35)
[2021-02-21] MEDS ORDERED: KETOROLAC TROMETHAMINE 30 MG/ML VIAL IM STA (00:35)
[2021-02-21] MEDS ORDERED: METHOCARBAMOL500 MG PO (00:38)
[2021-02-21] MEDS ORDERED: NAPROXEN250 MG PO (00:40)
[2021-02-21] MEDS ORDERED: ACETAMINOPHEN 325 MG TAB PO ONE (00:45)
[2021-02-21] MEDS ORDERED: KETOROLAC TROMETHAMINE 30 MG/ML VIAL ONE (00:47)
[2021-02-21] MEDS ORDERED: DEXAMETHASONE SOD PHOS INJ 4 MG/ML VIAL ONE (00:47)
[2021-02-21] MEDS ORDERED: ACETAMINOPHEN 325 MG TAB ONE (00:47)
[2021-02-21] MEDS ORDERED: LIDOCAINE 4% PATCH TP ONE (00:48)
== END 2021-02-21 00:50 | disposition home or self-care (01) ==
LOC: ER 02-21 00:36
DX: M54.5 Low back pain (principal); E11.9 Type 2 diabetes mellitus without complications; Z91.19 Patient's noncompliance with other medical treatment and regimen
CPT/HCPCS: 99283; J1100; J1885

== ENCOUNTER 2021-03-12 11:44 | Emergency (ER) | payer SELFPAY ==
[~2021-03-12] VITALS: Ht 177.8 cm; Wt 117.9 kg
[~2021-03-12 11:44] MED LIST changes: +METHOCARBAMOL500 MG PO
== END 2021-03-12 12:20 | disposition home or self-care (01) ==
LOC: ER 12:10
DX: R21 Rash and other nonspecific skin eruption (principal); E11.9 Type 2 diabetes mellitus without complications; E66.01 Morbid (severe) obesity due to excess calories; M54.9 Dorsalgia, unspecified; G89.29 Other chronic pain
CPT/HCPCS: 99282

== ENCOUNTER 2022-01-19 22:23 | Emergency (ER) | payer SELFPAY ==
[~2022-01-19] VITALS: Ht 177.8 cm; Wt 117.9 kg
[2022-01-19] MEDS ORDERED: KETOROLAC TROMETHAMINE 60 MG/2 ML VIAL IM ONE (22:30)
[2022-01-19] MEDS ORDERED: ULTRAM 50MG50 MG PO (23:42)
== END 2022-01-20 00:02 | disposition home or self-care (01) ==
LOC: ER 22:30
DX: M51.37 Other intervertebral disc degeneration, lumbosacral region (principal); E11.9 Type 2 diabetes mellitus without complications; G89.29 Other chronic pain; E66.01 Morbid (severe) obesity due to excess calories
CPT/HCPCS: 72100; 99283; J1885

== ENCOUNTER 2022-04-24 18:18 | Emergency (ER) | payer SELFPAY ==
[~2022-04-24] VITALS: Ht 177.8 cm; Wt 117.9 kg
[~2022-04-24 18:18] MED LIST changes: +ULTRAM 50MG50 MG PO
[2022-04-24] MEDS ORDERED: SODIUM CHLORIDE 0.9% 1000ML 1,000 ML IV STA (20:10)
[2022-04-24 20:30] LABS: BASOPHILS % 0.4 % (0.0-1.0); EOSINOPHILS # (AUTO) 0.7 (0.0-0.4); EOSINOPHILS % 7.9 % (0.0-6.0); HEMATOCRIT 50.5 % (38.2-49.6); HEMOGLOBIN 16.3 g/dL (14.0-18.0); LYMPHOCYTES # (AUTO) 2.1 (1.0-3.2); LYMPHOCYTES % 22.6 % (18.0-39.1); MEAN CORPUSCULAR HEMOGLOBIN 30.2 pg (28-32); MEAN CORPUSCULAR HGB CONC 32.3 g/dL (31-35); MEAN CORPUSCULAR VOLUME 93.5 fL (81-99); MONOCYTES # (AUTO) 0.9 (0.2-0.8); MONOCYTES % 9.9 % (4.4-11.3); NEUTROPHILS # (AUTO) 5.4 (2.1-6.9); NEUTROPHILS % 58.9 % (38.7-80.0); PLATELET COUNT 331 x10e3/uL (140-360); RED CELL DISTRIBUTION WIDTH 12.3 % (11.7-14.4)
[2022-04-24 20:39] LABS: CLARITY,URINE SL CLOUDY (CLEAR); COLOR,URINE YELLOW (YELLOW); KETONES,URINE TRACE (NEGATIVE); LEUKOCYTE ESTERASE ,URINE MODERATE (NEGATIVE); NITRITE,URINE NEGATIVE (NEGATIVE); PROTEIN,URINE DIPSTICK NEGATIVE (NEGATIVE); URINE UROBILINOGEN 0.2 mg/dL (0.2 - 1)
[2022-04-24 20:48] LABS: ALBUMIN 4.3 g/dL (3.5-5.0); ALBUMIN/GLOBULIN RATIO 1.1 (0.8-2.0); ANION GAP 14.8 mmol/L (8-16); CALCIUM 9.9 mg/dL (8.4-10.2); CREATININE, SERUM 0.87 mg/dL (0.72-1.25); POTASSIUM 3.8 mmol/L (3.5-5.1)
[2022-04-24 20:50] LABS: AMORPHOUS SEDIMENT,URINE MODERATE (FEW); BACTERIA,URINE MODERATE /HPF; EPITHELIAL CELLS,URINE MODERATE /LPF; RBC,URINE 0-5 /HPF (0-5)
[2022-04-24] MEDS ORDERED: IOPAMIDOL 370 MG/ML 100 ML INFUS..BTL INJ ONE (21:37)
[2022-04-24] MEDS ORDERED: FLUCONAZOLE100 MG PO (22:40)
[2022-04-24] MEDS ORDERED: DOXYCYCLINE HY100 MG PO (22:40)
[2022-04-24] MEDS ORDERED: NYSTATIN-TRIAMC15 GM TOP (22:41)
== END 2022-04-24 23:01 | disposition home or self-care (01) ==
LOC: ER 20:11
DX: R21 Rash and other nonspecific skin eruption (principal); B37.9 Candidiasis, unspecified; E11.65 Type 2 diabetes mellitus with hyperglycemia; E66.01 Morbid (severe) obesity due to excess calories; M54.9 Dorsalgia, unspecified; G89.29 Other chronic pain; F17.210 Nicotine dependence, cigarettes, uncomplicated
CPT/HCPCS: 36415; 74177; 80053; 81001; 83605; 85025; 87040; 99284; J7030; Q9967

== ENCOUNTER → 2022-11-29 | Outpatient (CLI) | payer OTHER ==
[~2022-11-29] MED LIST changes: +DOXYCYCLINE HY100 MG PO; +FLUCONAZOLE100 MG PO; +NYSTATIN-TRIAMC15 GM TOP
== END ==
LOC: RAD 11:26
PROVIDERS: ATTEND Family Medicine
DX: M54.2 Cervicalgia (principal); M54.6 Pain in thoracic spine; M54.50 Low back pain, unspecified; M25.531 Pain in right wrist; M25.521 Pain in right elbow
CPT/HCPCS: 72050; 72070; 72110

== ENCOUNTER 2024-01-18 19:50 | Emergency (ER) | payer OTHER ==
[~2024-01-18] VITALS: Ht 172.7 cm; Wt 117.9 kg
[2024-01-18 21:02] LABS: BASOPHILS % 0.1 % (0.0-1.0); EOSINOPHILS # (AUTO) 0.1 (0.0-0.4); EOSINOPHILS % 0.7 % (0.0-6.0); HEMATOCRIT 51.3 % (38.2-49.6); HEMOGLOBIN 17.9 g/dL (14.0-18.0); LYMPHOCYTES % 6.8 % (18.0-39.1); MEAN CORPUSCULAR HGB CONC 34.9 g/dL (31-35); MEAN CORPUSCULAR VOLUME 88.8 fL (81-99); MONOCYTES % 6.6 % (4.4-11.3); NEUTROPHILS # (AUTO) 12.3 (2.1-6.9); NEUTROPHILS % 85.3 % (38.7-80.0); PLATELET COUNT 155 x10e3/uL (140-360); RED BLOOD COUNT 5.78 x10e6/uL (4.3-5.7); RED CELL DISTRIBUTION WIDTH 12.7 % (11.7-14.4); WHITE BLOOD COUNT 14.43 x10e3/uL (4.8-10.8)
[2024-01-18 21:10] LABS: ALBUMIN 4.5 g/dL (3.5-5.0); ALBUMIN/GLOBULIN RATIO 1.3 (0.8-2.0); ANION GAP 15.6 mmol/L (8-16); BILIRUBIN,TOTAL 0.9 mg/dL (0.2-1.2); CALCIUM 10.5 mg/dL (8.4-10.2); CREATININE, SERUM 1.25 mg/dL (0.72-1.25); POTASSIUM 4.6 mmol/L (3.5-5.1); TOTAL PROTEIN 8.1 g/dL (6.5-8.1)
[2024-01-18] MEDS: SODIUM CHLORIDE 0.9% 1000ML 1,000 ML IV STA (21:22)
[2024-01-18] MEDS: SODIUM CHLORIDE 0.9% 1000ML 2,000 ML IV STA (21:22)
[2024-01-18] MEDS: ACETAMINOPHEN 325 MG TAB PO STA (21:23)
[2024-01-18] MEDS: IBUPROFEN 600 MG TAB PO STA (21:24)
[2024-01-18] MEDS ORDERED: AMOX TR-K CLV1 EAC2 PO (22:29)
[2024-01-18 23:00] VITALS: PULSE 89; RESP 15; TEMP 99.8; O2SAT 97
== END 2024-01-18 23:05 | disposition home or self-care (01) ==
LOC: ER 19:53
DX: R50.9 Fever, unspecified (principal); E66.01 Morbid (severe) obesity due to excess calories; E11.65 Type 2 diabetes mellitus with hyperglycemia; I10 Essential (primary) hypertension; M54.9 Dorsalgia, unspecified; G89.29 Other chronic pain; Z11.52 Encounter for screening for COVID-19; R94.31 Abnormal electrocardiogram [ECG] [EKG]
CPT/HCPCS: 36415; 71045; 80053; 83605; 85025; 87040; 93005; 99284; J2543; J7030; U0002